=== PATIENT | female | born 1995 | race Caucasian/White ===

== ENCOUNTER 2016-05-03 13:00 | Outpatient (RCR) | payer BC | END 2016-05-19 08:42 | disposition home or self-care (01) | LOC: MKS.ESL.PT 13:00 | DX: N94.2 Vaginismus (principal) ==

== ENCOUNTER → 2016-09-10 | Outpatient (REF) | LOC: WSOH 17:00 | DX: Z02.89 Encounter for other administrative examinations (principal) ==

== ENCOUNTER 2017-11-10 15:30 | Outpatient (RCR) | payer BC ==
[~2017-11-10 15:30] MED LIST: RECLIPSEN 0.151 TAB PO; TOPROL XL 50MG50 MG PO; WOMEN'S DAILY1 TAB PO
== END 2018-02-07 | disposition home or self-care (01) ==
LOC: MKS.ESL.PT
DX: M53.3 Sacrococcygeal disorders, not elsewhere classified (principal); M54.5 Low back pain

== ENCOUNTER → 2018-06-01 | Outpatient (CLI) | payer OTHER | LOC: COL.LAB 13:10 | DX: Z00.00 Encounter for general adult medical examination without abnormal findings (principal); Z71.3 Dietary counseling and surveillance; R53.82 Chronic fatigue, unspecified; R51 Headache ==